=== PATIENT | male | born 1990 | race American Indian/Alaskan Native ===

== ENCOUNTER 2018-05-22 04:56 | Emergency (ER) | payer OTHER ==
[2018-05-22 05:04] VITALS: BP 118/74
[2018-05-22] MEDS ORDERED: DELTASONE PO ONE (05:26)
[2018-05-22] MEDS ORDERED: PROVENTIL IH ONE (05:26)
[2018-05-22] MEDS ORDERED: IBUPROFEN PO ONE (05:27)
--- NOTE | 2018-05-22 05:41 | XRay Report ---
PROCEDURE: XR CHEST 1V AP TECHNIQUE: A single view the chest was submitted. HISTORY: Chest Pain COMPARISONS: None FINDINGS: The lungs are clear. The heart size is normal. The lungs are not congested. The skeletal structures a re well-maintained. IMPRESSION: Within normal limits.. This document is electronically signed by Geoffrey Dela Cruz MD., May 22 2018 05:38:52 AM ET
--- NOTE | 2018-05-22 05:50 | Emergency Department Report ---
ED General Adult HPI - General Chief complaint: Upper Respiratory Infection Stated complaint: CHEST PAIN COUGH HEADACHE SORENESS Time Seen by Provider: 05/22/18 05:21 Source: patient Mode of arrival: Ambulatory Limitations: No Limitations - History of Present Illness Initial comments: Patient is a 27 year old -Serbian male who presents for cough chest pain with cough generalized malaise and body aches for 3 days patient states subjective fever however no MAXIMUM TEMPERATURE at home no fever noted in triage today patient symptoms are improved with [id number] NSAIDs patient states symptoms are exacerbated by activity patient denies dizziness lightheadedness to some nausea and vomiting there is no back pain no shortness of breath there is no wheezing Primary medical Onset/Timin -: days(s) Severity scale (0 -10): 8 Quality: aching Consistency: constant Worsens with: none Associated Symptoms: cough Treatments Prior to Arrival: none - Related Data Previous Rx's Medication Instructions Recorded Last Taken Type ALBUTEROL Inhaler(NF) [VENTOLIN 2 puff IH Q4H PRN #1 inha 05/22/18 Unknown Rx Inhaler(NF)] Benzonatate [Tessalon Perles] 100 mg PO Q8HR PRN #30 capsule 05/22/18 Unknown Rx Ibuprofen 800 mg PO TID PRN #30 tablet 05/22/18 Unknown Rx predniSONE [Deltasone] 40 mg PO QDAY 5 Days #10 tab 05/22/18 Unknown Rx Allergies Allergy/AdvReac Type Severity Reaction Status Date / Time No Known Allergies Allergy Unverified 05/22/18 05:13 ED Review of Systems ROS: Stated complaint: CHEST PAIN COUGH HEADACHE SORENESS Other details as noted in HPI Constitutional: denies: chills, fever Eyes: as per HPI ENT: as per HPI Respiratory: no symptoms reported, orthopnea Cardiovascular: denies: chest pain, palpitations Endocrine: no symptoms reported Gastrointestinal: denies: abdominal pain, nausea, diarrhea Genitourinary: denies: urgency, dysuria Musculoskeletal: denies: back pain, joint swelling, arthralgia Skin: rash Neurological: denies: headache, weakness, paresthesias Psychiatric: denies: anxiety, depression Hematological/Lymphatic: denies: easy bleeding, easy bruising ED Past Medical Hx - Past Medical History Previous Medical History?: No - Surgical History Past Surgical History?: No - Social History Smoking Status: Never Smoker Substance Use Type: None - Medications Home Medications: Home Medications Medication Instructions Recorded Confirmed Last Taken Type ALBUTEROL Inhaler(NF) [VENTOLIN 2 puff IH Q4H PRN #1 inha 05/22/18 Unknown Rx Inhaler(NF)] Benzonatate [Tessalon Perles] 100 mg PO Q8HR PRN #30 capsule 05/22/18 Unknown Rx Ibuprofen 800 mg PO TID PRN #30 tablet 05/22/18 Unknown Rx predniSONE [Deltasone] 40 mg PO QDAY 5 Days #10 tab 05/22/18 Unknown Rx ED Physical Exam - General Limitations: No Limitations ED Course Vital Signs 05/22/18 05/22/18 05:02 05:11 Temperature 97.9 F 97.9 F Pulse Rate 77 72 Respiratory 18 18 Rate Blood Pressure 118/74 118/74 O2 Sat by Pulse 95 98 Oximetry ED Medical Decision Making - EKG Data EKG shows normal: sinus rhythm, axis, intervals, QRS complexes Rate: normal - EKG Data When compared to previous EKG there are: previous EKG unavailable Interpretation: no acute changes, normal EKG (ekg interp by ed attending nsr no st elevation no ectopy), nonspecific ST-T wave jodi (early repol ) - Radiology Data Radiology results: report reviewed, image reviewed rdering Physician: JOHN ACEVEDO MD Date of Service: 05/22/18 Procedure(s): XR chest 1V ap Accession Number(s): [id number] cc: JOHN ACEVEDO MD Fluoro Time In Minutes: PROCEDURE: XR CHEST 1V AP TECHNIQUE: A single view the chest was submitted. HISTORY: Chest Pain COMPARISONS: None FINDINGS: The lungs are clear. The heart size is normal. The lungs are not congested. The skeletal structures are well-maintained. IMPRESSION: Within normal limits.. This document is electronically signed by Geoffrey Dela Cruz MD., May 22 2018 05:38:52 AM ET Transcribed By: RB Dictated By: GEOFFREY DELA CRUZ MD Electronically Authenticated By: GEOFFREY DELA CRUZ MD Signed Date/Time: 05/22/1841 DD/ 3 TD/TT: 05/22/18531 - Medical Decision Making this is a uri, bronchitis plan ibuprofen, tessalon, albuterol , predinisone, pt will follow up with pcp in 2-3 days return to ed if symptoms worsen pt verbaliz ed agreement and understanding of same. Critical care attestation.: If time is entered above; I have spent that time in minutes in the direct care of this critically ill patient, excluding procedure time. ED Disposition Clinical Impression: Bronchitis URI (upper respiratory infection) Qualifiers: URI type: unspecified viral URI Qualified Code(s): J06.9 - Acute upper respiratory infection, unspecified Disposition: TO HOME OR SELFCARE Is pt being admited?: No Does the pt Need Aspirin: No Condition: Stable Instructions: Acute Bronchitis (ED), Upper Respiratory Infection (ED) Prescriptions: predniSONE [Deltasone] 40 mg PO QDAY 5 Days #10 tab Ibuprofen 800 mg PO TID PRN #30 tablet PRN Reason: pain fever Benzonatate [Tessalon Perles] 100 mg PO Q8HR PRN #30 capsule PRN Reason: Cough ALBUTEROL Inhaler(NF) [VENTOLIN Inhaler(NF)] 2 puff IH Q4H PRN #1 inha PRN Reason: shortness of breath wheezing Referrals: PRIMARY CARE, [Primary Care Provider] - 3-5 Days [facility] [Outside] - 3-5 Days Forms: Work/School Release Form(ED) Time of Disposition: 06:26
== END 2018-05-22 06:30 | disposition home or self-care (01) ==
LOC: ED 04:56
DX: J40 Bronchitis, not specified as acute or chronic (principal); J06.9 Acute upper respiratory infection, unspecified
CPT/HCPCS: 71045; 93005; 93010; 99283; J7512